=== PATIENT | male | born 1940 | race Caucasian/White ===

== ENCOUNTER 2023-07-03 10:14 | Outpatient (AMB) | payer OTHER, SELFPAY ==
--- NOTE | 2023-07-03 10:50 | HO.NEPHOV ---
HPI HPI Comments History of Present Illness Details I had the privilege of seeing Kevin was accompanied by his , in follow-up of his chronic kidney disease, hypertension and hypervolemia. In the past when he took metolazone his edema had improved. He is currently taking only furosemide 20 mg daily. He sleeps on a chair. He is not very strict with low-sodium diet. He denies shortness of breath at rest. He denies chest pain, palpitation, syncope, orthopnea, proximal nocturnal dyspnea or orthostatic symptoms. His renal functions had been stable. He does not take any nonsteroidal anti-inflammatories. [facility] Surgical History (Updated 07/03/23 @ 10:57 by Anisha Reyes MA) History of bladder surgery History of back surgery History of cataract surgery Family History (Updated 07/03/23 @ 10:59 by Anisha Reyes MA) Brother Cancer History of kidney transplant Brother Diabetes Social History (Updated 07/03/23 @ 10:59 by Anisha Reyes MA) Alcohol intake: never Patient Tobacco Use Status: Former Tobacco user Vital Signs 07/03/23 10:51 Height 6 ft Weight 264 lb 2 oz BMI 35.8 BP 138/80 Blood Pressure Location Lt brachial Position Sitting Pulse 67 Pulse Source Pulse Oximeter Pulse Oximetry (%) 97 Oxygen Delivery Method Room Air Physical Exam Vital Signs: Last Vital Signs Pulse 67 07/03/23 10:51 BP 138/80 07/03/23 10:51 Pulse Ox 97 07/03/23 10:51 Oxygen Delivery Method Room Air 07/03/23 10:51 BMI result Body Mass Index 35.8 Const General: comfortable and no acute distress Orientation/consciousness: patient oriented x3 HEENT Head: Yes normocephalic Mouth: Normal oral and palatal mucosa present Eyes EOM: EOMs intact bilaterally Neck Neck: Yes supple Resp Auscultation: clear to auscultation bilaterally Cardio Jugular venous distension: no JVD Rate: regular rate GI Palpation (GI): Soft to palpation Auscultation: normal bowel sounds General: Yes no CVA tenderness Back/Spine/Pelvis Back: no CVA tenderness Skin General skin exam: no rashes or lesions noted Neuro General: patient oriented x3 and moves all extremities Extrem General: Yes edema Assessment & Plan Assessment & Plan (1) CKD (chronic kidney disease), stage III: Code(s): N18.30 - Chronic kidney disease, stage 3 unspecified Qualifiers: Chronic kidney disease stage 3 subtype: stage 3a (GFR 45-59) Qualified Code(s): N18.31 - Chronic kidney disease, stage 3a (2) Hypertension: Code(s): I10 - Essential (primary) hypertension Qualifiers: Hypertension type: primary hypertension Qualified Code(s): I10 - Essential (primary) hypertension (3) Edema: Code(s): R60.9 - Edema, unspecified Qualifiers: Edema type: localized Qualified Code(s): R60.0 - Localized edema Plan Kevin has stage III CKD 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 He is clinically hypervolemic. I increased his furosemide 40 mg daily. I also started him on metolazone 2.5 mg daily for 5 days followed by 2.5 mg once a week. He should cut back sodium in the diet. He is going to repeat blood work and urine studies. I plan to switch his verapamil given that may also be contributing to his edema. He should weigh himself every day. He is going to be seen in the office in a month for continued care. All questions answered. Follow-up appointment given. Orders: Orders Blood Urea Nitrogen Today I10 - Essential (primary) hypertension, N18.30 - Chronic kidney disease, stage 3 unspecified, R60.9 - Edema, unspecified Electrolytes Today I10 - Essential (primary) hypertension, N18.30 - Chronic kidney disease, stage 3 unspecified, R60.9 - Edema, unspecified Protein Creatinine Ratio, Ur Today I10 - Essential (primary) hypertension, N18.30 - Chronic kidney disease, stage 3 unspecified, R60.9 - Edema, unspecified Creatinine Today I10 - Essential (primary) hypertension, N18.30 - Chronic kidney disease, stage 3 unspecified, R60.9 - Edema, unspecified Calcium Today I10 - Essential (primary) hypertension, N18.30 - Chronic kidney disease, stage 3 unspecified, R60.9 - Edema, unspecified Medications: New metolazone 2.5 mg PO QWEEK 30 tabs 0RF furosemide (Lasix) 40 mg PO DAILY 90 tabs 3RF Coding Level of Care Code Est Pt Level 4 (54952) Diagnoses Stage 3a chronic kidney disease N18.31 Chronic kidney disease stage 3 subtype: stage 3a (GFR 45-59) Primary hypertension I10 Hypertension type: primary hypertension Localized edema R60.0 Edema type: localized Results Reviewed Nephrology Results: No Data to Display
[2023-07-03 10:51] VITALS: BP 138/80; PULSE 67; O2SAT 97; BMI 35.8
== END 2023-07-03 11:40 | disposition home or self-care (01) ==
PROVIDERS: PCP Hospitalist; Visit Provider Internal Medicine Nephrology
DX: N18.31 Chronic kidney disease, stage 3a (principal); I10 Essential (primary) hypertension; R60.0 Localized edema
CPT/HCPCS: 99214

== ENCOUNTER → 2023-07-03 10:14 | Outpatient (BNVA) | payer OTHER, SELFPAY | PROVIDERS: PCP Hospitalist; Visit Provider Internal Medicine Nephrology ==

== ENCOUNTER 2023-08-05 10:04 | Outpatient (AMB) | payer OTHER, SELFPAY ==
--- NOTE | 2023-08-05 10:30 | HO.NEPHOV_ITS ---
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 He is currently taking furosemide 40 mg daily and metolazone 2.5 mg once a week. He sleeps on a chair. He is not very strict with low-sodium diet. He denies shortness of breath at rest. He denies chest pain, palpitation, syncope, orthopnea, proximal nocturnal dyspnea or orthostatic symptoms. His renal functions had been stable. He does not take any nonsteroidal anti-inflammatories. He feels better [facility] Surgical History History of bladder surgery History of back surgery History of cataract surgery Family History Brother Cancer History of kidney transplant Brother Diabetes Social History Alcohol intake: never Patient Tobacco Use Status: Former Tobacco user Physical Exam Vital Signs: Last Vital Signs Pulse 68 08/05/23 10:31 BP 128/60 08/05/23 10:31 Pulse Ox 93 08/05/23 10:31 Oxygen Delivery Method Room Air 08/05/23 10:31 BMI result Body Mass Index 35.0 Const General: comfortable and no acute distress Orientation/consciousness: patient oriented x3 HEENT Head: Yes normocephalic Mouth: Normal oral and palatal mucosa present Eyes EOM: EOMs intact bilaterally Neck Neck: Yes supple Resp Auscultation: clear to auscultation bilaterally Cardio Jugular venous distension: no JVD Rate: regular rate GI Palpation (GI): Soft to palpation Auscultation: normal bowel sounds General: Yes no CVA tenderness Back/Spine/Pelvis Back: no CVA tenderness Skin General skin exam: no rashes or lesions noted Neuro General: patient oriented x3 and moves all extremities Extrem General: Yes edema Results Reviewed Nephrology Results: No Data to Display Assessment & Plan Assessment & Plan (1) CKD (chronic kidney disease), stage III: Code(s): N18.30 - Chronic kidney disease, stage 3 unspecified Category: Medical Qualifiers: Chronic kidney disease stage 3 subtype: stage 3a (GFR 45-59) Qualified Code(s): N18.31 - Chronic kidney disease, stage 3a (2) Hypertension: Code(s): I10 - Essential (primary) hypertension Category: Medical Qualifiers: Hypertension type: primary hypertension Qualified Code(s): I10 - Essential (primary) hypertension (3) Edema: Code(s): R60.9 - Edema, unspecified Category: Medical Qualifiers: Edema type: localized Qualified Code(s): R60.0 - Localized edema Plan Kevin has stage III CKD 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 His volume status has improved. He can continue furosemide 40 mg daily along with metolazone 2.5 mg once a week. He should cut back sodium in the diet. He is going to repeat blood work and urine studies. I plan to switch his verapamil given that may also be contributing to his edema. He should weigh himself every day. He is going to be seen in the office for continued care. All questions answered. Follow-up appointment given Orders: Orders Creatinine Today I10 - Essential (primary) hypertension, N18.31 - Chronic kidney disease, stage 3a, R60.0 - Localized edema Electrolytes Today I10 - Essential (primary) hypertension, N18.31 - Chronic kidney disease, stage 3a, R60.0 - Localized edema Calcium Today I10 - Essential (primary) hypertension, N18.31 - Chronic kidney disease, stage 3a, R60.0 - Localized edema Blood Urea Nitrogen Today I10 - Essential (primary) hypertension, N18.31 - Chronic kidney disease, stage 3a, R60.0 - Localized edema Medications: Refilled metolazone 2.5 mg PO QWEEK 30 tabs 5RF Coding Level of Care Code Est Pt Level 4 (08709) Diagnoses Stage 3a chronic kidney disease N18.31 Chronic kidney disease stage 3 subtype: stage 3a (GFR 45-59) Primary hypertension I10 Hypertension type: primary hypertension Localized edema R60.0 Edema type: localized
[2023-08-05 10:31] VITALS: BP 128/60; PULSE 68; O2SAT 93; BMI 35.0
== END 2023-08-05 11:04 | disposition home or self-care (01) ==
PROVIDERS: PCP Hospitalist; Visit Provider Internal Medicine Nephrology
DX: N18.31 Chronic kidney disease, stage 3a (principal); I10 Essential (primary) hypertension; R60.0 Localized edema
CPT/HCPCS: 99214

== ENCOUNTER → 2023-08-05 10:04 | Outpatient (BNVA) | payer OTHER, SELFPAY | PROVIDERS: PCP Hospitalist; Visit Provider Internal Medicine Nephrology ==

== ENCOUNTER 2023-10-14 10:29 | Outpatient (AMB) | payer OTHER, SELFPAY ==
[2023-10-14 11:15] VITALS: BP 144/74; PULSE 70; O2SAT 95; BMI 35.3
--- NOTE | 2023-10-14 11:15 | HO.NEPHOV_ITS ---
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 He is currently taking furosemide 40 mg daily and metolazone 2.5 mg once a week. He sleeps on a chair. He is not very strict with low-sodium diet. He denies shortness of breath at rest. He denies chest pain, palpitation, syncope, orthopnea, proximal nocturnal dyspnea or orthostatic symptoms. His renal functions had been stable. He does not take any nonsteroidal anti-inflammatories. [facility] Surgical History History of bladder surgery History of back surgery History of cataract surgery Family History Brother Cancer History of kidney transplant Brother Diabetes Social History Alcohol intake: never Patient Tobacco Use Status: Former Tobacco user Physical Exam Vital Signs: Last Vital Signs Pulse 70 10/14/23 11:15 BP 144/74 H 10/14/23 11:15 Pulse Ox 95 10/14/23 11:15 Oxygen Delivery Method Room Air 10/14/23 11:15 BMI result Body Mass Index 35.3 Const General: comfortable and no acute distress Orientation/consciousness: patient oriented x3 HEENT Head: Yes normocephalic Mouth: Normal oral and palatal mucosa present Eyes EOM: EOMs intact bilaterally Neck Neck: Yes supple Resp Auscultation: clear to auscultation bilaterally Cardio Jugular venous distension: no JVD Rate: regular rate GI Palpation (GI): Soft to palpation Auscultation: normal bowel sounds General: Yes no CVA tenderness Back/Spine/Pelvis Back: no CVA tenderness Skin General skin exam: no rashes or lesions noted Neuro General: patient oriented x3 and moves all extremities Results Reviewed Nephrology Results: No Data to Display Assessment & Plan Assessment & Plan (1) Edema: Code(s): R60.9 - Edema, unspecified Category: Medical Qualifiers: Edema type: localized Qualified Code(s): R60.0 - Localized edema (2) Hypertension: Code(s): I10 - Essential (primary) hypertension Category: Medical Qualifiers: Hypertension type: primary hypertension Qualified Code(s): I10 - Essential (primary) hypertension (3) CKD (chronic kidney disease), stage III: Code(s): N18.30 - Chronic kidney disease, stage 3 unspecified Category: Medical Qualifiers: Chronic kidney disease stage 3 subtype: stage 3a (GFR 45-59) Qualified Code(s): N18.31 - Chronic kidney disease, stage 3a Plan Kevin has stage III CKD 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 His volume status has improved. He can continue furosemide 40 mg daily along with metolazone 2.5 mg once a week. He should cut back sodium in the diet. He is going to repeat blood work and urine studies. I D/Waqar his verapamil given that may also be contributing to his edema & started on hydralazine 25 mg twice daily. If his edema persists inspite of changing rosalind apamil , I shall consider re starting it. He should weigh himself every day. He is going to be seen in the office for continued care. All questions answered. Follow-up appointment given Medications: New hydralazine 25 mg PO BID 90 days 180 tabs 1RF Coding Level of Care Code Est Pt Level 4 (29021) Diagnoses Localized edema R60.0 Edema type: localized Primary hypertension I10 Hypertension type: primary hypertension Stage 3a chronic kidney disease N18.31 Chronic kidney disease stage 3 subtype: stage 3a (GFR 45-59)
== END 2023-10-14 11:34 | disposition home or self-care (01) ==
PROVIDERS: PCP Hospitalist; Visit Provider Internal Medicine Nephrology
DX: R60.0 Localized edema (principal); I10 Essential (primary) hypertension; N18.31 Chronic kidney disease, stage 3a
CPT/HCPCS: 99214

== ENCOUNTER → 2023-10-14 10:29 | Outpatient (BNVA) | payer OTHER, SELFPAY | PROVIDERS: PCP Hospitalist; Visit Provider Internal Medicine Nephrology ==

== ENCOUNTER 2024-01-08 14:23 | Outpatient (AMB) | payer OTHER, SELFPAY ==
[2024-01-08 15:12] VITALS: BP 150/76; PULSE 72; O2SAT 95; BMI 33.0
--- NOTE | 2024-01-08 15:12 | HO.NEPHOV ---
Vital Signs 01/08/24 15:12 Height 6 ft Weight 243 lb 8 oz BMI 33.0 BP 150/76 H Blood Pressure Location Lt brachial Position Sitting Pulse 72 Pulse Source Pulse Oximeter Pulse Oximetry (%) 95 Oxygen Delivery Method Room Air Intake Visit Reasons: CKD- Conf w/ Audio Visual Specialist Required: No Accompanied by: Spouse Allergies aspirin Allergy (Verified 01/08/24 15:13) Unknown diphenhydramine [From Benadryl] Allergy (Verified 01/08/24 15:13) Unknown HPI Comments Details: Kevin was seen in follow-up of his chronic kidney disease, hypertension and hypervolemia. He is currently taking furosemide 40 mg daily and metolazone 2.5 mg once a week. He sleeps on a chair. He is not very strict with low-sodium diet. He denies shortness of breath at rest. He denies chest pain, palpitation, syncope, orthopnea, proximal nocturnal dyspnea or orthostatic symptoms. His renal functions had been stable. He does not take any nonsteroidal anti-inflammatories. His edema had remarkably improved. [facility] Surgical History History of bladder surgery History of back surgery History of cataract surgery Family History Brother Cancer History of kidney transplant Brother Diabetes Social History Alcohol intake: never Patient Tobacco Use Status: Former Tobacco user Review of Systems Const All systems reviewed & are unremarkable except as noted in HPI and below Physical Exam Vital Signs: Last Vital Signs Pulse 72 01/08/24 15:12 BP 150/76 H 01/08/24 15:12 Pulse Ox 95 01/08/24 15:12 Oxygen Delivery Method Room Air 01/08/24 15:12 BMI result Body Mass Index 33.0 Const General: comfortable and no acute distress Orientation/consciousness: patient oriented x3 HEENT Head: Yes normocephalic Mouth: Normal oral and palatal mucosa present Eyes EOM: EOMs intact bilaterally Neck Neck: Yes supple Resp Auscultation: clear to auscultation bilaterally Cardio Jugular venous distension: no JVD Rate: regular rate GI Palpation (GI): Soft to palpation Auscultation: normal bowel sounds General: Yes no CVA tenderness Back/Spine/Pelvis Back: no CVA tenderness Skin General skin exam: no rashes or lesions noted Neuro General: patient oriented x3 and moves all extremities Results Reviewed Nephrology Results: No Data to Display Assessment & Plan Assessment & Plan (1) CKD (chronic kidney disease), stage III: Code(s): N18.30 - Chronic kidney disease, stage 3 unspecified Category: Medical Qualifiers: Chronic kidney disease stage 3 subtype: stage 3a (GFR 45-59) Qualified Code(s): N18.31 - Chronic kidney disease, stage 3a (2) Hypertension: Code(s): I10 - Essential (primary) hypertension Category: Medical Qualifiers: Hypertension type: primary hypertension Qualified Code(s): I10 - Essential (primary) hypertension Plan Kevin has stage III CKD 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 His volume status has remarkably improved. He can continue furosemide 40 mg daily along with metolazone 2.5 mg once a week. He should cut back sodium in the diet. He is going to repeat blood work and urine studies. He should weigh himself every day. He is going to be seen in the office for continued care. All questions answered. Follow-up appointment given Orders: Orders Creatinine 2 Months I10 - Essential (primary) hypertension, N18.31 - Chronic kidney disease, stage 3a Blood Urea Nitrogen 2 Months I10 - Essential (primary) hypertension, N18.31 - Chronic kidney disease, stage 3a Electrolytes 2 Months I10 - Essential (primary) hypertension, N18.31 - Chronic kidney disease, stage 3a Coding Level of Care Code Est Pt Level 4 (90053) Diagnoses Stage 3a chronic kidney disease N18.31 Chronic kidney disease stage 3 subtype: stage 3a (GFR 45-59) Primary hypertension I10 Hypertension type: primary hypertension
== END 2024-01-08 16:09 | disposition home or self-care (01) ==
PROVIDERS: PCP Hospitalist; Visit Provider Internal Medicine Nephrology
DX: N18.31 Chronic kidney disease, stage 3a (principal); I10 Essential (primary) hypertension
CPT/HCPCS: 99214

== ENCOUNTER → 2024-01-08 14:23 | Outpatient (BNVA) | payer OTHER, SELFPAY | PROVIDERS: PCP Hospitalist; Visit Provider Internal Medicine Nephrology ==

== ENCOUNTER 2024-04-27 10:43 | Outpatient (AMB) | payer OTHER, SELFPAY ==
--- NOTE | 2024-04-27 11:01 | HO.NEPHOV ---
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 He is currently taking furosemide 40 mg daily and metolazone 2.5 mg once a week. He sleeps on a chair. He is not very strict with low-sodium diet. He denies shortness of breath at rest. He denies chest pain, palpitation, syncope, orthopnea, proximal nocturnal dyspnea or orthostatic symptoms. His renal functions had been stable. He does not take any nonsteroidal anti-inflammatories. His edema had remarkably improved. [facility] Surgical History History of bladder surgery History of back surgery History of cataract surgery Family History Brother Cancer History of kidney transplant Brother Diabetes Social History Alcohol intake: never Patient Tobacco Use Status: Former Tobacco user Review of Systems Const All systems reviewed & are unremarkable except as noted in HPI and below Physical Exam Vital Signs: Last Vital Signs BP 110/70 04/27/24 11:02 BMI result Body Mass Index 34.1 Const General: comfortable and no acute distress Orientation/consciousness: patient oriented x3 HEENT Head: Yes normocephalic Mouth: Normal oral and palatal mucosa present Eyes EOM: EOMs intact bilaterally Neck Neck: Yes supple Resp Auscultation: clear to auscultation bilaterally Cardio Jugular venous distension: no JVD Rate: regular rate GI Palpation (GI): Soft to palpation Auscultation: normal bowel sounds General: Yes no CVA tenderness Back/Spine/Pelvis Back: no CVA tenderness Skin General skin exam: no rashes or lesions noted Neuro General: patient oriented x3 and moves all extremities Results Reviewed Nephrology Results: No Data to Display Assessment & Plan Assessment & Plan (1) CKD (chronic kidney disease), stage III: Code(s): N18.30 - Chronic kidney disease, stage 3 unspecified Category: Medical Qualifiers: Chronic kidney disease stage 3 subtype: stage 3a (GFR 45-59) Qualified Code(s): N18.31 - Chronic kidney disease, stage 3a (2) Hypertension: Code(s): I10 - Essential (primary) hypertension Category: Medical Qualifiers: Hypertension type: primary hypertension Qualified Code(s): I10 - Essential (primary) hypertension (3) Edema: Code(s): R60.9 - Edema, unspecified Category: Medical Qualifiers: Edema type: localized Qualified Code(s): R60.0 - Localized edema Plan Kevin has stage III CKD 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 His volume status has remarkably improved. He can continue furosemide 40 mg daily along with metolazone 2.5 mg once a week. He should cut back sodium in the diet. He should weigh himself every day. All questions answered. Follow-up appointment given Orders: Orders Creatinine 4 Months I10 - Essential (primary) hypertension, N18.31 - Chronic kidney disease, stage 3a, R60.0 - Localized edema Blood Urea Nitrogen 4 Months I10 - Essential (primary) hypertension, N18.31 - Chronic kidney disease, stage 3a, R60.0 - Localized edema Electrolytes 4 Months I10 - Essential (primary) hypertension, N18.31 - Chronic kidney disease, stage 3a, R60.0 - Localized edema Coding Level of Care Code Est Pt Level 4 (65916) Diagnoses Stage 3a chronic kidney disease N18.31 Chronic kidney disease stage 3 subtype: stage 3a (GFR 45-59) Primary hypertension I10 Hypertension type: primary hypertension Localized edema R60.0 Edema type: localized
[2024-04-27 11:02] VITALS: BP 110/70; BMI 34.1
--- OUTSIDE RECORDS SUMMARY | 2024-04-27 11:34 | XMS_ITS | Clinical Summary ---
Author Organization [facility] Facility Address [address] [place] [id number] Care Team Providers Care Theology Professor Name Role Phone Katie Jade MD Primary Care Provider [phone] Allergies Active Allergy Reactions Criticality Noted Date Comments Aspirin 12/19/2022 Diphenhydramine 12/19/2022 Medications carvedilol (COREG) 25 MG tablet Take 25 mg by mouth in the morning and 25 mg in the evening. 10/24/2022 Active terazosin (HYTRIN) 5 MG capsule Take 3 capsules by mouth 1 (one) time each day 12/05/2022 Active simvastatin (ZOCOR) 20 MG tablet Take 20 mg by mouth 1 (one) time each day in the evening 09/26/2022 Active lisinopril 40 MG tablet Take 40 mg by mouth 1 (one) time each day 09/25/2022 Active allopurinol (ZYLOPRIM) 100 MG tablet Take 200 mg by mouth 1 (one) time each day 09/26/2022 Active verapamil ER (VERELAN) 180 MG 24 hr capsule Take 2 capsules by mouth 1 (one) time each day 11/18/2022 Active furosemide (LASIX) 20 MG tablet Take 20 mg by mouth 1 (one) time each day Active metOLazone 5 MG tablet Take 1 tablet (5 mg total) by mouth 1 (one) time each day for 5 days 5 tablet 12/19/2022 Active Active Problems Problem Noted Date Diagnosed Date Hypertension 12/19/2022 Family History Relation Status Comments Father Mother Social History Tobacco Use Types Packs/Day Years Used Date Smoking Tobacco: Former Cigarettes Tobacco Cessation:Counseling Given: Not Answered Sex and Gender Information Value Date Recorded Sex Assigned at Not on file Legal Sex Male 2:15 PM EDT Gender Identity Not on file Sexual Orientation Not on file Last Filed Vital Signs Vital Sign Reading Time Taken Comments Blood Pressure 160/80 12/19/2022 2:29 PM EDT Pulse 70 12/19/2022 2:29 PM EDT Temperature - - Respiratory Rate - - Oxygen Saturation 96% 12/19/2022 2:29 PM EDT Inhaled Oxygen Concentration - - Weight 119 kg (263 lb 6.4 oz) 12/19/2022 2:29 PM EDT Height 182.9 cm (6') 12/19/2022 2:29 PM EDT Body Mass Index 35.72 12/19/2022 2:29 PM EDT Plan of Treatment Health Maintenance Due Date Last Done Comments Pneumococcal Vaccine: 65+ Ye ars (1 of 2 - PCV) 1946 Influenza Vaccine (#1) 2023 Hepatitis B Vaccine Aged Out No longe r eligible based on patient's age to complete this topic Insurance [employer] Care Teams Theology Professor Relationship Specialty Start Date End Date Katie Jade MD [address] [place] [id number] PCP - General Internal Medicine 12/19/22
== END 2024-04-27 11:40 | disposition home or self-care (01) ==
PROVIDERS: PCP Hospitalist; Visit Provider Internal Medicine Nephrology
DX: N18.31 Chronic kidney disease, stage 3a (principal); I10 Essential (primary) hypertension; R60.0 Localized edema
CPT/HCPCS: 99214

== ENCOUNTER → 2024-04-27 10:43 | Outpatient (BNVA) | payer OTHER, SELFPAY | PROVIDERS: PCP Hospitalist; Visit Provider Internal Medicine Nephrology ==

== ENCOUNTER 2024-09-07 13:11 | Outpatient (AMB) | payer OTHER, SELFPAY ==
[2024-09-07 13:26] VITALS: BP 166/70; PULSE 75; O2SAT 93; BMI 34.3
--- NOTE | 2024-09-07 13:26 | HO.NEPHOV_ITS ---
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 He is currently taking furosemide 40 mg alternating with 20 mg every other day and metolazone 2.5 mg once a week. He sleeps on a chair. He is not very strict with low-sodium diet. He denies shortness of breath at rest. He denies chest pain, palpitation, syncope, orthopnea, proximal nocturnal dyspnea or orthostatic symptoms. His serum creatinine has gone up. He does not take any nonsteroidal anti-inflammatories. His edema had remarkably improved. [facility] Surgical History History of bladder surgery History of back surgery History of cataract surgery Family History Brother Cancer History of kidney transplant Brother Diabetes Social History Alcohol intake: never Patient Tobacco Use Status: Former Tobacco user Review of Systems Const All systems reviewed & are unremarkable except as noted in HPI and below Physical Exam Vital Signs: Last Vital Signs Pulse 75 09/07/24 13:26 BP 166/70 H 09/07/24 13:26 Pulse Ox 93 09/07/24 13:26 Oxygen Delivery Method Room Air 09/07/24 13:26 BMI result Body Mass Index 34.3 Const General: comfortable and no acute distress Orientation/consciousness: patient oriented x3 HEENT Head: Yes normocephalic Mouth: Normal oral and palatal mucosa present Eyes EOM: EOMs intact bilaterally Neck Neck: Yes supple Resp Auscultation: clear to auscultation bilaterally Cardio Jugular venous distension: no JVD Rate: regular rate GI Palpation (GI): Soft to palpation Auscultation: normal bowel sounds General: Yes no CVA tenderness Back/Spine/Pelvis Back: no CVA tenderness Skin General skin exam: no rashes or lesions noted Neuro General: patient oriented x3 and moves all extremities Results Reviewed Nephrology Results: No Data to Display Assessment & Plan Assessment & Plan (1) JULIO (acute kidney injury): Code(s): N17.9 - Acute kidney failure, unspecified Category: Medical (2) CKD (chronic kidney disease), stage III: Code(s): N18.30 - Chronic kidney disease, stage 3 unspecified Category: Medical Qualifiers: Chronic kidney disease stage 3 subtype: stage 3a (GFR 45-59) Qualified Code(s): N18.31 - Chronic kidney disease, stage 3a (3) Hypertension: Code(s): I10 - Essential (primary) hypertension Category: Medical Qualifiers: Hypertension type: primary hypertension Qualified Code(s): I10 - Essential (primary) hypertension Plan Kevin has stage III CKD 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 His serum creatinine has gone up. I reduced his lasix to 20 mg daily. His volume status has remarkably improved. He can continue metolazone 2.5 mg once a week. He should cut back sodium in the diet. He should weigh himself every day. I may cut back on his ACEI if his serum creatinine doesnt settle. All questions answered. Follow-up appointment given Orders: Orders Creatinine 7 Weeks I10 - Essential (primary) hypertension, N17.9 - Acute kidney failure, unspecified, N18.31 - Chronic kidney disease, stage 3a Blood Urea Nitrogen 7 Weeks I10 - Essential (primary) hypertension, N17.9 - Acute kidney failure, unspecified, N18.31 - Chronic kidney disease, stage 3a Electrolytes 7 Weeks I10 - Essential (primary) hypertension, N17.9 - Acute kidney failure, unspecified, N18.31 - Chronic kidney disease, stage 3a Coding Level of Care Code Est Pt Level 4 (91759) Diagnoses JULIO (acute kidney injury) N17.9 Stage 3a chronic kidney disease N18.31 Chronic kidney disease stage 3 subtype: stage 3a (GFR 45-59) Primary hypertension I10 Hypertension type: primary hypertension
--- OUTSIDE RECORDS SUMMARY | 2024-09-07 15:05 | XMS_ITS | Patient Health Record ---
Author Organization [facility] Address [address] [place] [address] Care Team Providers Care Wallpaper Scraper Name Role Phone KEVIN LIZAMA Primary Care Provider [phone] Allergies Allergen (clinical drug ingredient) Drug/Non Drug Allergy documented on EMR Reaction Allergy Type Onset Date Status aspirin Aspirin Unknown Drug Allergy Active diphenhydramine Benadryl Unknown Drug Allergy A ctive Results Component Value Reference Range Notes ELECTROLYTE PANEL Reviewed date:09/07/2024 11:09:22 AM Interpretation: Performing Lab: Notes/Report: Sodium 138 133-145 mmol/L Potassium 4.2 3.5-5.5 mmol/L Chloride 103 96-110 mmol/L CO2 32 21-32 mmol/L Anion Gap 3 3-11 BUN Reviewed date:09/07/2024 11:09:12 AM Interpretation: Performing Lab: Notes/Report: BUN 52 5-25 mg/dL CREATININE Reviewed date:09/07/2024 11:09:17 AM Interpretation: Performing Lab: Notes/Report: Creatinine 2.15 0.70-1.30 mg/dL eGFR 30 >=60 mL/min/1.73m2 Calculati on based on the Chronic Kidney Disease Epidemiology Collaboration (CKD-EPI) equation refit without adjustment for race. MICROALB/CREAT RATIO, RANDOM Reviewed date:12/03/2023 06:21:10 PM Interpretation: Performing Lab: Notes/Report: Original Ordering Provider: KEVIN LIZAMA MD [employer], a member of [address] [address] [employer] - [place] MD MICROALBUMIN, RANDOM 82.8 0.0-29.0 mg/L MICROALB/CRE RATIO RANDOM 55.2 0.0-30.0 mg/G CREATININE, RANDOM URINE 150 LIPID PROFILE Reviewed date:12/03/2023 06:21:12 PM Interpretation: Performing Lab: Notes/Report: [employer] [address] [employer] Manager - [place] MD CHOLESTEROL 124 0-200 mg/dL TRIGLYCERIDES 123 0-150 mg/dL HDL CHOLESTEROL 41 >40 mg/dL LDL CALCULATED 59 0-100 mg/dL TC-HDLC RATIO 3.0 0-4.4 mg/dL GLYCOHEMOGLOBIN PROFILE Reviewed date:12/03/2023 06:21:07 PM Interpretation: Performing Lab: Notes/Report: Original Ordering Provider: KEVIN LIZAMA MD [employer] [address] [employer] Manager - [place] MD GLYCATED HEMOGLOBIN A1C 5.9 <6.5 % ESTIMATED AVERAGE GLUCOSE [address]IVE METABOLIC PANE L Reviewed date:12/03/2023 06:18:11 PM Interpretation: Performing Lab: Notes/Report: Original Ordering Provider: KEVIN LIZAMA MD GLUCOSE 110 70-100 mg/dL Reference range applicable to fasting specimens only BUN 48 5-25 mg/dL CREAT 1.94 0.7-1.3 mg/dL GLOMERULAR FILTRATION RATE 34 >60 This eGFR result was calculated using the CKD-EPI 2020 Creatinine Equation SODIUM 140 135-145 mEq/L POTASSIUM 4.0 3.5-5.5 mmol/L CHLORIDE 103 96-110 mmol/L CO2 29 21-32 mmol/L ANION GAP 8 3-11 CALCIUM 9.2 8.5-10.5 mg/dL TOTAL PROTEIN 7.0 6.0-8.0 G/dL ALBUMIN 3.5 3.2-5.0 G/dL BILI,TOTAL 0.6 0.0-1.4 mg/dL SGOT 21 10-42 U/L SGPT 16 10-60 U/L ALK PHOS 64 42-121 U/L Reason For Referral No Information Medications Medication SIG (Take, Route, Frequency, Duration) Notes Start Date End Date Status Simvastatin 20 MG 1 tablet Orally Once a day in the morning for 90 days Active predniSONE 20 MG 1 tablet Orally three times a day for 5 days 08/13/2022 Not-Taking Allopurinol 100 MG TAKE 2 TABLETS BY MOUTH EVERY DAY for 90 days Active Verapamil HCl ER 180 MG TAKE 2 CAPSULES BY MOUTH ONCE DAILY 90 for 90 Not-Taking hydroCHLOROthiazide 12.5 MG TAKE 1 CAPSU LE BY MOUTH EVERY MORNING for 90 Not-Taking oxyCODONE HCl 5 MG 1 tablet as needed Orally 3 times a day for 7 days 08/29/2023 Not-Taking Carvedilol 25 MG TAKE 1 TABLET BY MOUTH TWICE A DAY WITH FOOD FOR 90 DAYS for 90 Not-Taking Lisinopril 40 MG TAKE 1 TABLET BY MOUTH EVERY DAY for 90 Active Terazosin HCl 5 MG TAKE 3 CAPSULES BY MOUTH EVERY DAY for 90 Active metOLazone 2.5 MG 1 tablet Orally Once a week for 5 days 05/21/2023 Active Furosemide 40 MG TAKE 1 TABLET BY MOUTH EVERY DAY Orally Once a day for 90 days Active Immunizations Vaccine Route Administration Date Status Comme nts COVID Moderna Unknown 05/24/2020 Administered COVID Moderna Unknown 06/21/2020 Administered COVID Moderna Unknown 01/20/2021 Administered COVID-19 Moderna Unknown 12/03/2021 Administered Flu High-Dose Unknown 12/03/2021 Administered Influenza, high dose seasonal Unknown 11/22/2018 Administered Influenza, high dose seasonal Unknown 12/03/2020 Administered Pneumococcal polysaccharide PPV23 Unknown 05/06/2016 Administered Shingrix Unknown 01/08/2019 Administered Tdap IM Intramuscular 11/20/2022 Administered Social History Tobacco Use: Social History Observation Description Date Details (start date - stop date) Former Smoker NA - NA Tobacco Use/Smoking Question Answer Notes Are you a former smoker Alcohol Screen (Audit-C) Question Answer Notes Did you have a drink containing alcohol in the p ast year? 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) Active confirmed Problem Chronic kidney disease stage 3 (disorder) (441097279) Chronic kidney disease, stage 3 (moderate) (N18.3) Active confirmed Problem Congenital renal artery stenosis (484039529) 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) Active confirmed Problem Impaired fasting glucose (131564393) Impaired fasting glucose (R73.01) Active confirmed Problem Proteinuria (18962721) Proteinuria, unspecified (R80.9) Active confirmed Problem Adult health examination (925557797) Encounter for general adult medical examination without abnormal findings (Z00.00) Active confirmed Problem Essential hypertension (08421502) Essential (primary) hypertension (I10) Active confirmed Problem Benign prostatic hypertrophy without outflow obstruction (940469041) Benign prostatic hyperplasia without lower urinary tract symptoms (N40.0) Active confirmed Problem Neck pain (65308218) Neck pain (M54.2) Active confirmed Vital Signs Heart Rate 67 /min 06/09/2024 Temperature 96.7 degrees Fahrenheit 06/09/2024 Oximetry 96 % 06/09/2024 Blood pressure diastolic 82 mm Hg 06/09/2024 Height 69.37 in 06/09/2024 Blood pressure systolic 140 mm Hg 06/09/2024 Weight 248.4 lbs 06/09/2024 BMI 36.29 kg/m2 06/09/2024 Encounters Encounter Location Date Provider Diagnosis [address] [address] 12/11/2023 KEVIN LIZAMA Encounter for [facility] adult medical examination without abnormal findings Z00.00 ; Essential (primary) hypertension I10 ; Mixed hyperlipidemia E78.2 ; Chronic kidney disease, stage 3 (moderate) N18.3 and Chronic gout, unspecified, without tophus (tophi) M1A.9XX0 [address] [address] 06/09/2024 KEVIN LIZAMA Essential (primary) hypertension I10 ; Mixed hyperlipidemia E78.2 ; Chronic kidney disease, stage 3 (moderate) N18.3 ; Chronic gout, unspecified, without tophus (tophi) M1A.9XX0 and Impaired fasting glucose R73.[address] [place] [address] 09/29/2023 KEVIN LIZAMA [facility] [address] [place] [address] 08/19/2024 KEVIN LIZAMA Assessments Encounter Date Diagnosis (ICD Code) Assessment Notes Treatment Notes Treatment Clinical Notes Section Notes 12/11/2023 Encounter for general adult medical examination without abnormal findings (ICD-10 - Z00.00) Mr. Mercado is an 83-year-old gentleman with hypertension, hyperlipidemia, BPH, CKD stage III and gout here for Medicare annual wellness visit. Plan is as follows: Hypertension with proteinuria. Blood pressure well controlled on current regimen. EKG is normal sinus rhythm at [address] with no acute [address] or T wave changes, no bundle branch blocks, normal intervals Hyperlipidemia. Last lipid panel within normal limits. Continue Simvastatin 20 MG at night. Gout. Stable on Allopurinol 200 MG daily. Chronic kidney disease. He does not appear to be in volume overload. Advised appropriate hydration. Avoid NSAIDs. He sees Dr. Fonseca. Continue metolazone 5 MG once a day for 5 days. Continue Furosemide 20 MG once a day. BPH. Stable on Terazosin 5 MG daily. Impaired fasting glucose. Dietary restrictions, regimental exercise and weight loss advised. check A1c. Morbid obesity. He lost 9 lbs since last visit. Advised dietary restrictions and regimental exercise. Goal is to lose 5-6 lbs a month. Eye screening. He sees his compensation supervisor regularly. Dental screening. He sees dentist regularly. Immunizations. He is up-to-date on his COVID, TDAP, influenza, shingles and pneumonia vaccinations. Blood work reviewed with patient and questions answered. General health concerns discussed with patient. Scribe services used to formulate this note under HIPAA compliance and under [place] law mandated for scribe services. Patient aware of service. Verbal consent and written consent taken from the patient. Patient understands and verbalizes understanding of the scribes services and all questions answered regarding scribes services. Patient agrees to use of scribes services. 06/09/2024 Mixed hyperlipidemia (ICD-10 - E78.2) Mr. Mercado is an 83-year-old gentleman with hypertension, hyperlipidemia, BPH, CKD stage III and gout here for Medicare annual wellness visit. Plan is as follows: Hypertension with proteinuria. Blood pressure well controlled on current regimen. Hyperlipidemia. Last lipid panel within normal limits. Continue Simvastatin 20 MG at night. Gout. Stable on Allopurinol 200 MG daily. Chronic kidney disease. He does not appear to be in volume overload. Advised appropriate hydration. Avoid NSAIDs. He sees Dr. Fonseca. Continue metolazone 5 MG once a day for 5 days. Continue Furosemide 20 MG once a day. BPH. Stable on Terazosin 5 MG daily. Impaired fasting glucose. Dietary restrictions, regimental exercise and weight loss advised. check A1c. Morbid obesity. He lost 9 lbs since last visit. Advised dietary restrictions and regimental exercise. Goal is to lose 5-6 lbs a month. Eye screening. He sees his compensation supervisor regularly. Dental screening. He sees dentist regularly. Immunizations. He is up-to-date on his COVID, TDAP, influenza, shingles and pneumonia vaccinations. Blood work reviewed with patient and questions answered. General health concerns discussed with patient. 06/09/2024 Essential (primary) hypertension (ICD-10 - I10) Mr. Mercado is an 83-year-old gentleman with hypertension, hyperlipidemia, BPH, CKD stage III and gout here for Medicare annual wellness visit. Plan is as follows: Hypertension with proteinuria. Blood pressure well controlled on current regimen. Hyperlipidemia. Last lipid panel within normal limits. Continue Simvastatin 20 MG at night. Gout. Stable on Allopurinol 200 MG daily. Chronic kidney disease. He does not appear to be in volume overload. Advised appropriate hydration. Avoid NSAIDs. He sees Dr. Fonseca. Continue metolazone 5 MG once a day for 5 days. Continue Furosemide 20 MG once a day. BPH. Stable on Terazosin 5 MG daily. Impaired fasting glucose. Dietary restrictions, regimental exercise and weight loss advised. check A1c. Morbid obesity. He lost 9 lbs since last visit. Advised dietary restrictions and regimental exercise. Goal is to lose 5-6 lbs a month. Eye screening. He sees his compensation supervisor regularly. Dental screening. He sees dentist regularly. Immunizations. He is up-to-date on his COVID, TDAP, influenza, shingles and pneumonia vaccinations. Blood work reviewed with patient and questions answered. General health concerns discussed with patient. 06/09/2024 Chronic kidney disease, stage 3 (moderate) (ICD-10 - N18.3) Mr. Mercado is an 83-year-old gentleman with hypertension, hyperlipidemia, BPH, CKD stage III and gout here for Medicare annual wellness visit. Plan is as follows: Hypertension with proteinuria. Blood pressure well controlled on current regimen. Hyperlipidemia. Last lipid panel within normal limits. Continue Simvastatin 20 MG at night. Gout. Stable on Allopurinol 200 MG daily. Chronic kidney disease. He does not appear to be in volume overload. Advised appropriate hydration. Avoid NSAIDs. He sees Dr. Fonseca. Continue metolazone 5 MG once a day for 5 days. Continue Furosemide 20 MG once a day. BPH. Stable on Terazosin 5 MG daily. Impaired fasting glucose. Dietary restrictions, regimental exercise and weight loss advised. check A1c. Morbid obesity. He lost 9 lbs since last visit. Advised dietary restrictions and regimental exercise. Goal is to lose 5-6 lbs a month. Eye screening. He sees his compensation supervisor regularly. Dental screening. He sees dentist regularly. Immunizations. He is up-to-date on his COVID, TDAP, influenza, shingles and pneumonia vaccinations. Blood work reviewed with patient and questions answered. General health concerns discussed with patient. 12/11/2023 Essential (primary) hypertension (ICD-10 - I10) Mr. Mercado is an 83-year-old gentleman with hypertension, hyperlipidemia, BPH, CKD stage III and gout here for Medicare annual wellness visit. Plan is as follows: Hypertension with proteinuria. Blood pressure well controlled on current regimen. EKG is normal sinus rhythm at 68 bpm with no acute ST or T wave changes, no bundle branch blocks, normal intervals Hyperlipidemia. Last lipid panel within normal limits. Continue Simvastatin 20 MG at night. Gout. Stable on Allopurinol 200 MG daily. Chronic kidney disease. He does not appear to be in volume overload. Advised appropriate hydration. Avoid NSAIDs. He sees Dr. Fonseca. Continue metolazone 5 MG once a day for 5 days. Continue Furosemide 20 MG once a day. BPH. Stable on Terazosin 5 MG daily. Impaired fasting glucose. Dietary restrictions, regimental exercise and weight loss advised. check A1c. Morbid obesity. He lost 9 lbs since last visit. Advised dietary restrictions and regimental exercise. Goal is to lose 5-6 lbs a month. Eye screening. He sees his compensation supervisor regularly. Dental screening. He sees dentist regularly. Immunizations. He is up-to-date on his COVID, TDAP, influenza, shingles and pneumonia vaccinations. Blood work reviewed with patient and questions answered. General health concerns discussed with patient. Scribe services used to formulate this note under HIPAA compliance and under [place] law mandated for scribe services. Patient aware of service. Verbal consent and written consent taken from the patient. Patient understands and verbalizes understanding of the scribes services and all questions answered regarding scribes services. Patient agrees to use of scribes services. 12/11/2023 Mixed hyperlipidemia (ICD-10 - E78.2) Mr. Mercado is an 83-year-old gentleman with hypertension, hyperlipidemia, BPH, CKD stage III and gout here for Medicare annual wellness visit. Plan is as follows: Hypertension with proteinuria. Blood pressure well controlled on current regimen. EKG is normal sinus rhythm at 68 bpm with no acute ST or T wave changes, no bundle branch blocks, normal intervals Hyperlipidemia. Last lipid panel within normal limits. Continue Simvastatin 20 MG at night. Gout. Stable on Allopurinol 200 MG daily. Chronic kidney disease. He does not appear to be in volume overload. Advised appropriate hydration. Avoid NSAIDs. He sees Dr. Fonseca. Continue metolazone 5 MG once a day for 5 days. Continue Furosemide 20 MG once a day. BPH. Stable on Terazosin 5 MG daily. Impaired fasting glucose. Dietary restrictions, regimental exercise and weight loss advised. check A1c. Morbid obesity. He lost 9 lbs since last visit. Advised dietary restrictions and regimental exercise. Goal is to lose 5-6 lbs a month. Eye screening. He sees his compensation supervisor regularly. Dental screening. He sees dentist regularly. Immunizations. He is up-to-date on his COVID, TDAP, influenza, shingles and pneumonia vaccinations. Blood work reviewed with patient and questions answered. General health concerns discussed with patient. Scribe services used to formulate this note under HIPAA compliance and under [place] law mandated for scribe services. Patient aware of service. Verbal consent and written consent taken from the patient. Patient understands and verbalizes understanding of the scribes services and all questions answered regarding scribes services. Patient agrees to use of scribes services. 06/09/2024 Chronic gout, unspecified, without tophus (tophi) (ICD-10 - M1A.9XX0) Mr. Mercado is an 83-year-old gentleman with hypertension, hyperlipidemia, BPH, CKD stage III and gout here for Medicare annual wellness visit. Plan is as follows: Hypertension with proteinuria. Blood pressure well controlled on current regimen. Hyperlipidemia. Last lipid panel within normal limits. Continue Simvastatin 20 MG at night. Gout. Stable on Allopurinol 200 MG daily. Chronic kidney disease. He does not appear to be in volume overload. Advised appropriate hydration. Avoid NSAIDs. He sees Dr. Fonseca. Continue metolazone 5 MG once a day for 5 days. Continue Furosemide 20 MG once a day. BPH. Stable on Terazosin 5 MG daily. Impaired fasting glucose. Dietary restrictions, regimental exercise and weight loss advised. check A1c. Morbid obesity. He lost 9 lbs since last visit. Advised dietary restrictions and regimental exercise. Goal is to lose 5-6 lbs a month. Eye screening. He sees his compensation supervisor regularly. Dental screening. He sees dentist regularly. Immunizations. He is up-to-date on his COVID, TDAP, influenza, shingles and pneumonia vaccinations. Blood work reviewed with patient and questions answered. General health concerns discussed with patient. 12/11/2023 Chronic kidney disease, stage 3 (moderate) (ICD-10 - N18.3) Mr. Mercado is an 83-year-old gentleman with hypertension, hyperlipidemia, BPH, CKD stage III and gout here for Medicare annual wellness visit. Plan is as follows: Hypertension with proteinuria. Blood pressure well controlled on current regimen. EKG is normal sinus rhythm at 68 [address]pm with no acute ST or T wave changes, no bundle branch blocks, normal intervals Hyperlipidemia. Last lipid panel within normal limits. Continue Simvastatin 20 MG at night. Gout. Stable on Allopurinol 200 MG daily. Chronic kidney disease. He does not appear to be in volume overload. Advised appropriate hydration. Avoid NSAIDs. He sees Dr. Fonseca. Continue metolazone 5 MG once a day for 5 days. Continue Furosemide 20 MG once a day. BPH. Stable on Terazosin 5 MG daily. Impaired fasting glucose. Dietary restrictions, regimental exercise and weight loss advised. check A1c. Morbid obesity. He lost 9 lbs since last visit. Advised dietary restrictions and regimental exercise. Goal is to lose 5-6 lbs a month. Eye screening. He sees his compensation supervisor regularly. Dental screening. He sees dentist regularly. Immunizations. He is up-to-date on his COVID, TDAP, influenza, shingles and pneumonia vaccinations. Blood work reviewed with patient and questions answered. General health concerns discussed with patient. Scribe services used to formulate this note under HIPAA compliance and under [place] law mandated for scribe services. Patient aware of service. Verbal consent and written consent taken from the patient. Patient understands and verbalizes understanding of the scribes services and all questions answered regarding scribes services. Patient agrees to use of scribes services. 12/11/2023 Chronic gout, unspecified, without tophus (tophi) (ICD-10 - M1A.9XX0) Mr. Mercado is an 83-year-old gentleman with hypertension, hyperlipidemia, BPH, CKD stage III and gout here for Medicare annual wellness visit. Plan is as follows: Hypertension with proteinuria. Blood pressure well controlled on current regimen. EKG is normal sinus rhythm at 68 [address]pm with no acute ST or T wave changes, no bundle branch blocks, normal intervals Hyperlipidemia. Last lipid panel within normal limits. Continue Simvastatin 20 MG at night. Gout. Stable on Allopurinol 200 MG daily. Chronic kidney disease. He does not appear to be in volume overload. Advised appropriate hydration. Avoid NSAIDs. He sees Dr. Fonseca. Continue metolazone 5 MG once a day for 5 days. Continue Furosemide 20 MG once a day. BPH. Stable on Terazosin 5 MG daily. Impaired fasting glucose. Dietary restrictions, regimental exercise and weight loss advised. check A1c. Morbid obesity. He lost 9 lbs since last visit. Advised dietary restrictions and regimental exercise. Goal is to lose 5-6 lbs a month. Eye screening. He sees his compensation supervisor regularly. Dental screening. He sees dentist regularly. Immunizations. He is up-to-date on his COVID, TDAP, influenza, shingles and pneumonia vaccinations. Blood work reviewed with patient and questions answered. General health concerns discussed with patient. Scribe services used to formulate this note under HIPAA compliance and under [place] law mandated for scribe services. Patient aware of service. Verbal consent and written consent taken from the patient. Patient understands and verbalizes understanding of the scribes services and all questions answered regarding scribes services. Patient agrees to use of scribes services. 06/09/2024 Impaired fasting glucose (ICD-10 - R73.01) Mr. Mercado is an 83-year-old gentleman with hypertension, hyperlipidemia, BPH, CKD stage III and gout here for Medicare annual wellness visit. Plan is as follows: Hypertension with proteinuria. Blood pressure well controlled on current regimen. Hyperlipidemia. Last lipid panel within normal limits. Continue Simvastatin 20 MG at night. Gout. Stable on Allopurinol 200 MG daily. Chronic kidney disease. He does not appear to be in volume overload. Advised appropriate hydration. Avoid NSAIDs. He sees Dr. Fonseca. Continue metolazone 5 MG once a day for 5 days. Continue Furosemide 20 MG once a day. BPH. Stable on Terazosin 5 MG daily. Impaired fasting glucose. Dietary restrictions, regimental exercise and weight loss advised. check A1c. Morbid obesity. He lost 9 lbs since last visit. Advised dietary restrictions and regimental exercise. Goal is to lose 5-6 lbs a month. Eye screening. He sees his compensation supervisor regularly. Dental screening. He sees dentist regularly. Immunizations. He is up-to-date on his COVID, TDAP, influenza, shingles and pneumonia vaccinations. Blood work reviewed with patient and questions answered. General health concerns discussed with patient. Plan Of Treatment Pending Test Test Name Order Date Electrocardiogram (EKG) 12/17/2017 Hemoglobin A1c 06/17/2018 BASIC METABOLIC PANEL 05/21/2023 COMPREHENSIVE METABOLIC PANEL 12/30/2018 HEMOGLOBIN A1C 10/26/2021 HEMOGLOBIN A1C 10/24/2021 LIPID PANEL 12/30/2018 MICROALBUMIN, URINE 12/30/2018 URIC ACID 06/17/2018 Hemoglobin A1C 06/11/2018 Hemoglobin [id number] 05/21/2023 Future Test Test Name Order Date Uric [id number] 06/09/2024 Hemoglobin [id number] 06/09/2024 Albumin/Creatinine Ratio,[id number] Lipid [id number] 06/09/2024 Comp. Metabolic Panel [id number] 2024 Next Appt Details Provider Name:KEVIN LIZAMA , 12/14/2024 03:00:00 PM, [address], [place], [address], Insurance Providers Payer Name Payer Address Payer Phone Subscriber Number Group Number Insured Name Patient Relationship to Insured Coverage Start Date Coverage End Date [employer] Preferred [address] [place] [address] [id number] CALLI MERCADO Self - patient is the insured 2 Medical (General) History Medical History History ICD Code hypertension, benign hyperlipidemia BPH Gout Surgical History Surgery Date(Month/Year) cataract removal 2015 Disc Fragments, back 2000 bladder cancer 1992
== END 2024-09-07 13:56 | disposition home or self-care (01) ==
LOC: HO.HKAS 13:14
PROVIDERS: PCP Hospitalist; Visit Provider Internal Medicine Nephrology
DX: N17.9 Acute kidney failure, unspecified (principal); N18.31 Chronic kidney disease, stage 3a; I10 Essential (primary) hypertension
CPT/HCPCS: 99214

== ENCOUNTER 2024-11-25 10:59 | Outpatient (AMB) | payer OTHER, SELFPAY ==
--- NOTE | 2024-11-25 11:07 | HO.NEPHOV ---
Vital Signs 11/25/24 11:12 Height 6 ft Weight 255 lb 8 oz BMI 34.6 BP 130/70 Blood Pressure Location Lt brachial Position Sitting Pulse 67 Pulse Source Pulse Oximeter Pulse Oximetry (%) 95 Oxygen Delivery Method Room Air Intake Visit Reasons: f/u appt ok per -[employer] Executive Required: No Accompanied by: Spouse Allergies aspirin Allergy (Verified 11/25/24 11:11) Unknown diphenhydramine (From Benadryl) Allergy (Verified 11/25/24 11:11) Unknown HPI Comments Details: Kevin was seen in follow-up of his chronic kidney disease, hypertension and H/O hypervolemia. He is currently taking furosemide 40 mg alternating with 20 mg every other day and metolazone 2.5 mg once a week. He sleeps on a chair. He is not very strict with low-sodium diet. He denies shortness of breath at rest. He denies chest pain, palpitation, syncope, orthopnea, proximal nocturnal dyspnea or orthostatic symptoms. He does not take any nonsteroidal anti-inflammatories. His edema had remarkably improved. FORMERLY [facility] Surgical History History of bladder surgery History of back surgery History of cataract surgery Family History Brother Cancer History of kidney transplant Brother Diabetes Social History Alcohol intake: never Patient Tobacco Use Status: Former Tobacco user Review of Systems Const All systems reviewed & are unremarkable except as noted in HPI and below Physical Exam Const General: comfortable and no acute distress Orientation/consciousness: patient oriented x3 HEENT Head: Yes normocephalic Mouth: Normal oral and palatal mucosa present Eyes EOM: EOMs intact bilaterally Neck Neck: Yes supple Resp Auscultation: clear to auscultation bilaterally Cardio Jugular venous distension: no JVD Rate: regular rate GI Palpation (GI): Soft to palpation Auscultation: normal bowel sounds General: Yes no CVA tenderness Back/Spine/Pelvis Back: no CVA tenderness Skin General skin exam: no rashes or lesions noted Neuro General: patient oriented x3 and moves all extremities Assessment & Plan Assessment & Plan (1) Hypertension: Code(s): I10 - Essential (primary) hypertension Category: Medical Qualifiers: Hypertension type: primary hypertension Qualified Code(s): I10 - Essential (primary) hypertension (2) CKD (chronic kidney disease), stage III: Code(s): N18.30 - Chronic kidney disease, stage 3 unspecified Category: Medical Qualifiers: Chronic kidney disease stage 3 subtype: stage 3a (GFR 45-59) Qualified Code(s): N18.31 - Chronic kidney disease, stage 3a (3) Edema: Code(s): R60.9 - Edema, unspecified Category: Medical Qualifiers: Edema type: localized Qualified Code(s): R60.0 - Localized edema Plan Kevin has stage III CKD 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 His serum creatinine has improved to baseline after I reduced his lasix to 20 mg daily. He was asked to increase lasix 40 mg daily if needed. His volume status has remarkably improved. He can continue metolazone 2.5 mg once a week which can go up to twice a week if needed. He should cut back sodium in the diet. He should weigh himself every day. I may cut back on his ACEI if his serum creatinine goes up. All questions answered. Follow-up appointment given Orders: Orders Blood Urea Nitrogen 6 Months I10 - Essential (primary) hypertension, N18.31 - Chronic kidney disease, stage 3a, R60.0 - Localized edema Electrolytes 6 Months I10 - Essential (primary) hypertension, N18.31 - Chronic kidney disease, stage 3a, R60.0 - Localized edema Creatinine 3 Months I10 - Essential (primary) hypertension, N18.31 - Chronic kidney disease, stage 3a, R60.0 - Localized edema Creatinine 6 Months I10 - Essential (primary) hypertension, N18.31 - Chronic kidney disease, stage 3a, R60.0 - Localized edema Calcium 6 Months I10 - Essential (primary) hypertension, N18.31 - Chronic kidney disease, stage 3a, R60.0 - Localized edema Electrolytes 3 Months I10 - Essential (primary) hypertension, N18.31 - Chronic kidney disease, stage 3a, R60.0 - Localized edema Blood Urea Nitrogen 3 Months I10 - Essential (primary) hypertension, N18.31 - Chronic kidney disease, stage 3a, R60.0 - Localized edema Coding Level of Care Code Est Pt Level 4 (69817) Diagnoses Primary hypertension I10 Hypertension type: primary hypertension Stage 3a chronic kidney disease N18.31 Chronic kidney disease stage 3 subtype: stage 3a (GFR 45-59) Localized edema R60.0 Edema type: localized
[2024-11-25 11:12] VITALS: BP 130/70; PULSE 67; O2SAT 95; BMI 34.6
--- OUTSIDE RECORDS SUMMARY | 2024-11-25 12:36 | XMS_ITS | Clinical Summary ---
Author Organization [facility] Facility Address [address] [place] [address] Care Team Providers Care Credit Operations Processor Name Role Phone Katie Jade MD Primary Care Provider [phone] Allergies Active Allergy Reactions Criticality Noted Date [...] Due Date Last Done Comments Pneumococcal Vaccine: 50+ Ye ars (1 of 2 - PCV) 1960 Influenza Vaccine (#1) 2024 Hepatitis B Vaccine Aged Out No longe r eligible based on patient's age to complete this topic Insurance [employer] Care Teams Credit Operations Processor Relationship Specialty Start Date End Date Katie Jade MD [address] [place] [address] PCP - General Internal Medicine 12/19/22
--- OUTSIDE RECORDS SUMMARY | 2024-11-25 12:36 | XMS_ITS | Patient Health Record ---
Author Organization [facility] Address [address] [place] [address] Care Team Providers Care Chamber Magistrate Name Role Phone KEVIN LIZAMA Primary Care Provider [phone] Allergies Allergen (clinical drug ingredient) Drug/Non Drug Allergy documented on EMR Reaction Allergy Type Onset Date Status aspirin Aspirin Unknown Drug Allergy Active diphenhydramine Benadryl Unknown Drug Allergy A ctive Results Component Value Reference Range Notes COMPREHENSIVE METABOLIC PANE L Reviewed date:12/03/2023 06:18:11 [...] 10-60 U/L ALK PHOS 64 42-121 U/L LIPID PROFILE Reviewed date:12/03/2023 06:21:12 PM Interpretation: Performing Lab: Notes/Report: [facility], a member of [address] [address] Finishing Manager - Sandy Cross MD CHOLESTEROL 124 0-200 mg/dL TRIGLYCERIDES 123 0-150 mg/dL HDL CHOLESTEROL 41 >40 mg/dL LDL CALCULATED 59 0-100 mg/dL TC-HDLC RATIO 3.0 0-4.4 mg/dL MICROALB/CREAT RATIO, RANDOM Reviewed date:12/03/2023 06:21:10 PM Interpretation: Performing Lab: Notes/Report: Original Ordering Provider: KEVIN LIZAMA MD [facility], a member of [address] [address] Finishing Manager - Sandy Cross MD MICROALBUMIN, RANDOM 82.8 0.0-29.0 mg/L MICROALB/CRE RATIO RANDOM 55.2 0.0-30.0 mg/G CREATININE, RANDOM URINE 150 ELECTROLYTE PANEL Reviewed date:11/17/2024 07:42:38 AM Interpretation: Performing Lab: Notes/Report: Sodium 137 133-145 mmol/L Potassium 4.0 3.5-5.5 mmol/L Chloride 102 96-110 mmol/L CO2 30 21-32 mmol/L Anion Gap 5 3-11 BUN Reviewed date:11/17/2024 07:42:41 AM Interpretation: Performing Lab: Notes/Report: BUN 26 5-25 mg/dL CREATININE Reviewed date:11/17/2024 07:42:34 AM Interpretation: Performing Lab: Notes/Report: Creatinine 1.76 0.70-1.30 mg/dL eGFR 38 >=60 mL/min/1.73m2 Calculati on based on the Chronic Kidney Disease Epidemiology Collaboration (CKD-EPI) equation refit without adjustment for race. ELECTROLYTE PANEL Reviewed date:09/07/2024 11:09:22 AM Interpretation: [...] (CKD-EPI) equation refit without adjustment for race. GLYCOHEMOGLOBIN PROFILE Reviewed date:12/03/2023 06:21:07 PM Interpretation: Performing Lab: Notes/Report: Original Ordering Provider: KEVIN LIZAMA MD [facility] [address] Finishing Manager - Sandy Cross MD GLYCATED HEMOGLOBIN A1C 5.9 <6.5 % ESTIMATED AVERAGE GLUCOSE 123 Reason For Referral No Information Medications Medication SIG (Take, Route, Frequency, Duration) Notes Start Date End Date Status Simvastatin 20 MG 1 tablet Orally Once a day in the morning; Duration: 90 days Active predniSONE 20 MG 1 tablet Orally three times a day; Duration: 5 days 08/13/2022 Not-Taking Allopurinol 100 MG TAKE 2 TABLETS BY MOUTH EVERY DAY; Duration: 90 days Active Verapamil HCl ER 180 MG TAKE 2 CAPSULES BY MOUTH ONCE DAILY 90; Duration: 90 Not-Taking Carvedilol 25 MG TAKE 1 TABLET BY MOUTH TWICE A DAY WITH FOOD FOR 90 DAYS; Duration: 90 Active hydroCHLOROthiazide 12.5 MG TAKE 1 CAPSU LE BY MOUTH EVERY MORNING; Duration: 90 Not-Taking oxyCODONE HCl 5 MG 1 tablet as needed Orally 3 times a day; Duration: 7 days 08/29/2023 Not-Taking Lisinopril 40 MG TAKE 1 TABLET BY MOUTH EVERY DAY; Duration: 90 Active Terazosin HCl 5 MG TAKE 3 CAPSULES BY MOUTH EVERY DAY; Duration: 90 Active metOLazone 2.5 MG 1 tablet Orally Once a week; Duration: 5 days 05/21/2023 Active Furosemide 40 MG TAKE 1 TABLET BY MOUTH EVERY DAY Orally Once a day; Duration: 90 days Active Immunizations Vaccine Route Administration [...] Status Risk Notes Problem Morbid obesity (disorder) (970621332) Morbid (severe) obesity due to excess calories (E66.01) Active confirmed Problem Mixed hyperlipidemia (440836984) Mixed hyperlipidemia (E78.2) Active confirmed Problem Chronic gouty arthritis (32731792) Chronic gout, unspecified, 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) Active confirmed Problem Chronic kidney disease stage 3 (disorder) (716114233) Chronic kidney disease, stage 3 (moderate) (N18.3) Active confirmed Problem Congenital renal artery stenosis (247176330) 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) Active confirmed Problem Impaired fasting glucose (944651722) Impaired fasting glucose (R73.01) Active confirmed Problem Proteinuria (22936093) Proteinuria, unspecified (R80.9) Active confirmed Problem Adult health examination (969358968) Encounter for general adult medical examination without abnormal findings (Z00.00) Active confirmed Problem Essential hypertension (97581397) Essential (primary) hypertension (I10) Active confirmed Problem Benign prostatic hypertrophy without outflow obstruction (432510556) Benign prostatic hyperplasia without lower urinary tract symptoms (N40.0) Active confirmed Problem Neck pain (54489309) Neck pain (M54.2) Active confirmed Vital Signs Heart Rate 67 /min 06/09/2024 Temperature 96.7 degrees Fahrenheit 06/09/2024 Blood pressure diastolic 82 mm Hg 06/09/2024 Oximetry 96 % 06/09/2024 Height 69.37 in 06/09/2024 Blood pressure systolic 140 mm Hg 06/09/2024 Weight 248.4 lbs 06/09/2024 BMI 36.29 kg/m2 06/09/2024 Encounters Encounter Location Date Provider Diagnosis [address] [place] [address] 12/11/2023 KEVIN MATA Encounter for genera l adult medical examination without abnormal findings Z00.00 ; Essential (primary) hypertension I10 ; Mixed hyperlipidemia E78.2 ; Chronic kidney disease, stage 3 (moderate) N18.3 and Chronic gout, unspecified, without tophus (tophi) M1A.9XX0 [address] [place] [address] 06/09/2024 [facility] Essential (primary) hypertension I10 ; Mixed hyperlipidemia E78.2 ; Chronic kidney disease, stage 3 (moderate) N18.3 ; Chronic gout, unspecified, without tophus (tophi) M1A.9XX0 and Impaired fasting glucose R73.[address] [place] [address] 08/19/2024 KEVIN MATA Assessments Encounter Date Diagnosis (ICD Code) Assessment [...] a month. Eye screening. He sees his ore crushing dust collector regularly. Dental screening. He sees dentist regularly. Immunizations. He is up-to-date on his COVID, TDAP, influenza, shingles and pneumonia vaccinations. Blood work reviewed with patient and questions answered. General health concerns discussed with patient. Scribe services used to formulate this note under HIPAA compliance and under [place] law mandated for scribe services. Patient aware [...] a month. Eye screening. He sees his ore crushing dust collector regularly. Dental screening. He sees dentist regularly. [...] a month. Eye screening. He sees his ore crushing dust collector regularly. Dental screening. He sees dentist regularly. [...] a month. Eye screening. He sees his ore crushing dust collector regularly. Dental screening. He sees dentist regularly. [...] a month. Eye screening. He sees his ore crushing dust collector regularly. Dental screening. He sees dentist regularly. Immunizations. He is up-to-date on his COVID, TDAP, influenza, shingles and pneumonia vaccinations. Blood work reviewed with patient and questions answered. General health concerns discussed with patient. Scribe services used to formulate this note under HIPAA compliance and under [place] law mandated for scribe services. Patient aware [...] a month. Eye screening. He sees his ore crushing dust collector regularly. Dental screening. He sees dentist regularly. Immunizations. He is up-to-date on his COVID, TDAP, influenza, shingles and pneumonia vaccinations. Blood work reviewed with patient and questions answered. General health concerns discussed with patient. Scribe services used to formulate this note under HIPAA compliance and under [place] law mandated for scribe services. Patient aware [...] a month. Eye screening. He sees his ore crushing dust collector regularly. Dental screening. He sees dentist regularly. [...] a month. Eye screening. He sees his ore crushing dust collector regularly. Dental screening. He sees dentist regularly. Immunizations. He is up-to-date on his COVID, TDAP, influenza, shingles and pneumonia vaccinations. Blood work reviewed with patient and questions answered. General health concerns discussed with patient. Scribe services used to formulate this note under HIPAA compliance and under [place] law mandated for scribe services. Patient aware [...] a month. Eye screening. He sees his ore crushing dust collector regularly. Dental screening. He sees dentist regularly. Immunizations. He is up-to-date on his COVID, TDAP, influenza, shingles and pneumonia vaccinations. Blood work reviewed with patient and questions answered. General health concerns discussed with patient. Scribe services used to formulate this note under HIPAA compliance and under [place] law mandated for scribe services. Patient aware [...] a month. Eye screening. He sees his ore crushing dust collector regularly. Dental screening. He sees dentist regularly. Immunizations. He is up-to-date on his COVID, TDAP, influenza, shingles and pneumonia vaccinations. Blood work reviewed with patient and questions answered. General health concerns discussed with patient. Plan Of Treatment Pending Test Test Name Order Date Electrocardiogram (EKG) 12/17/2017 Hemoglobin A1c 06/17/2018 BASIC METABOLIC PANEL 05/21/2023 COMPREHENSIVE METABOLIC PANEL 12/30/2018 HEMOGLOBIN A1C 10/24/2021 HEMOGLOBIN A1C 10/26/2021 LIPID PANEL 12/30/2018 MICROALBUMIN, URINE 12/30/2018 URIC ACID 06/17/2018 Hemoglobin A1C 06/11/2018 Hemoglobin [id number] 05/21/2023 Future Test Test Name Order Date Uric Acid-[id number] 06/09/2024 Hemoglobin [id number] 06/09/2024 Albumin/Creatinine Ratio,Urine-[id number] Lipid Panel-[id number] 06/09/2024 Comp. Metabolic Panel [id number] 2024 Next Appt Details Provider Name:KEVIN LIZAMA , 12/14/2024 03:00:00 PM, [address] [place] [address], [id number], Insurance Providers Payer Name Payer Address Payer Phone Subscriber Number Group Number Insured Name Patient Relationship to Insured Coverage Start Date Coverage End Date [employer] Preferred [address] [place] [address] [phone] [id number] Neil Mercado Self - patient is the insured 2 Medical (General) History Medical History History ICD Code hypertension, benign hyperlipidemia BPH Gout Surgical History Surgery Date(Month/Year) cataract removal 2016 Disc Fragments, back 2000 bladder cancer 1992
== END 2024-11-25 11:42 | disposition home or self-care (01) ==
LOC: HO.HKAS 10:59
PROVIDERS: PCP Hospitalist; Visit Provider Internal Medicine Nephrology
DX: I10 Essential (primary) hypertension (principal); N18.31 Chronic kidney disease, stage 3a; R60.0 Localized edema
CPT/HCPCS: 99214

== ENCOUNTER 2025-03-23 11:40 | Outpatient (AMB) | payer OTHER, SELFPAY ==
[2025-03-23 11:54] VITALS: BP 130/70; PULSE 70; O2SAT 96; BMI 34.2
--- NOTE | 2025-03-23 11:54 | HO.NEPHOV_ITS ---
Vital Signs 03/23/25 11:54 Height 6 ft Weight 252 lb BMI 34.2 BP 130/70 Blood Pressure Location Lt brachial Position Sitting Pulse 70 Pulse Source Pulse Oximeter Pulse Oximetry (%) 96 Oxygen Delivery Method Room Air Intake Visit Reasons: Leg Edema Senior Account Manager Required: No Accompanied by: Spouse Allergies aspirin Allergy (Verified 03/23/25 11:56) Unknown diphenhydramine (From Benadryl) Allergy (Verified 03/23/25 11:56) Unknown HPI Comments Details: Kevin was seen in follow-up of his chronic kidney disease, hypertension and hypervolemia. He has been having weeping edema in both lower extremities . He also has been having erythema with purulent discharge on the RLE at a spot. He is currently taking furosemide 20 mg every day and metolazone 2.5 mg once a week. He sleeps on a chair. He is not very strict with low-sodium diet. He denies shortness of breath at rest. He denies chest pain, palpitation, syncope, orthopnea, proximal nocturnal dyspnea or orthostatic symptoms. He does not take any nonsteroidal anti-inflammatories. [facility] Surgical History History of bladder surgery History of back surgery History of cataract surgery Family History Brother Cancer History of kidney transplant Brother Diabetes Social History Alcohol intake: never Patient Tobacco Use Status: Former Tobacco user Review of Systems Const All systems reviewed & are unremarkable except as noted in HPI and below Physical Exam Vital Signs: Last Vital Signs Pulse 70 03/23/25 11:54 BP 170/72 H 03/23/25 11:54 Pulse Ox 96 03/23/25 11:54 Oxygen Delivery Method Room Air 03/23/25 11:54 BMI result Body Mass Index 34.2 Const General: comfortable and no acute distress Orientation/consciousness: patient oriented x3 HEENT Head: Yes normocephalic Mouth: Normal oral and palatal mucosa present Eyes EOM: EOMs intact bilaterally Neck Neck: Yes supple Resp Auscultation: clear to auscultation bilaterally Cardio Jugular venous distension: no JVD Rate: regular rate GI Palpation (GI): Soft to palpation Auscultation: normal bowel sounds General: Yes no CVA tenderness Back/Spine/Pelvis Back: no CVA tenderness Skin General skin exam: no rashes or lesions noted Neuro General: patient oriented x3 and moves all extremities Extrem General: Yes no pedal edema Assessment & Plan Assessment & Plan (1) CKD (chronic kidney disease), stage III: Code(s): N18.30 - Chronic kidney disease, stage 3 unspecified Category: Medical Qualifiers: Chronic kidney disease stage 3 subtype: stage 3a (GFR 45-59) Qualified Code(s): N18.31 - Chronic kidney disease, stage 3a (2) Hypertension: Code(s): I10 - Essential (primary) hypertension Category: Medical Qualifiers: Hypertension type: primary hypertension Qualified Code(s): I10 - Essential (primary) hypertension (3) Cellulitis: Code(s): L03.90 - Cellulitis, unspecified Category: Medical Qualifiers: Site of cellulitis: extremity Site of cellulitis of extremity: lower extremity Laterality: right Qualified Code(s): L03.115 - Cellulitis of right lower limb Plan Kevin has stage III CKD 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 I started him on Doxycycline 100 mg PO bid. I increased his lasix to 40 mg twice daily for a week followed by 40 mg daily. He can continue metolazone 2.5 mg once a week which can go up to twice a week if needed. I reduced his lisinopril to 20 mg daily which I shall increase to 40 mg when his diuretic dose is cut back. He should cut back sodium in the diet. He should weigh himself every day.All questions answered. Follow-up appointment given Orders: Orders Electrolytes 2 Weeks I10 - Essential (primary) hypertension, L03.90 - Cellulitis, unspecified, N18.31 - Chronic kidney disease, stage 3a Blood Urea Nitrogen 2 Weeks I10 - Essential (primary) hypertension, L03.90 - Cellulitis, unspecified, N18.31 - Chronic kidney disease, stage 3a Creatinine 2 Weeks I10 - Essential (primary) hypertension, L03.90 - Cellulitis, unspecified, N18.31 - Chronic kidney disease, stage 3a Medications: New doxycycline hyclate 100 mg PO BID 20 caps 0RF Coding Level of Care Code Est Pt Level 4 (03989) Diagnoses Stage 3a chronic kidney disease N18.31 Chronic kidney disease stage 3 subtype: stage 3a (GFR 45-59) Primary hypertension I10 Hypertension type: primary hypertension Cellulitis of right lower extremity L03.115 Site of cellulitis: extremity Site of cellulitis of extremity: lower extremity Laterality: right
--- OUTSIDE RECORDS SUMMARY | 2025-03-23 13:23 | XMS_ITS | Clinical Summary ---
Author Organization [facility] Facility Address [address] [place] [address] Care Team Providers Care Immunology Specialist Name Role Phone Katie Jade MD Primary Care Provider Allergies Active Allergy Reactions Criticality Noted Date [...] Insurance [employer] Care Teams Immunology Specialist Relationship Specialty Start Date End Date Katie Jade MD [address] [place] [address] PCP - General Internal Medicine 12/19/22
--- OUTSIDE RECORDS SUMMARY | 2025-03-23 13:23 | XMS_ITS | Patient Health Record ---
Author Organization [employer] [facility] Address [address] [place] [address] Care Team Providers Care Hadoop Engineer Name Role Phone KEVIN LIZAMA Primary Care Provider [phone] Allergies Allergen (clinical drug ingredient) Drug/Non Drug Allergy documented on EMR Reaction Allergy Type Onset Date Status aspirin Aspirin Unknown Drug Allergy Active diphenhydramine Benadryl Unknown Drug Allergy A ctive Results Component Value Reference Range Notes URIC ACID Reviewed date:12/07/2024 05:26:02 PM Interpretation: Performing Lab: Notes/Report: Uric Acid 5.3 3.7-9.2 mg/dL MICROALBUMIN CREATININE URIN E RATIO Reviewed date:12/07/2024 05:25:15 PM Interpretation: Performing Lab: Notes/Report: Creatinine, Urine 174.0 Microalb, Ur 39.3 0.0-29.0 mg/L Microalb/Creat Ratio 23 <30 mg/g creat COMPREHENSIVE METABOLIC PANE L Reviewed date:12/07/2024 05:25:58 PM Interpretation: Performing Lab: Notes/Report: Sodium 138 133-145 mmol/L Potassium 4.2 3.5-5.5 mmol/L Chloride 102 96-110 mmol/L CO2 27 21-32 mmol/L Anion Gap 9 3-11 Glucose 109 70-100 mg/dL BUN 42 5-25 mg/dL Creatinine 2.06 0.70-1.30 mg/dL eGFR 31 >=60 mL/min/1.73m2 Calculati on based on the Chronic Kidney Disease Epidemiology Collaboration (CKD-EPI) equation refit without adjustment for race. BUN/Creatinine Ratio 20.4 Calcium 8.9 8.5-10.5 mg/dL AST (SGOT) 21 10-42 unit/L ALT (SGPT) 16 10-60 unit/L Alkaline Phosphatase 65 42-121 unit/L Total Protein 7.2 6.0-8.0 g/dL Albumin 3.4 3.2-5.0 g/dL Total Bilirubin 0.5 0.0-1.4 mg/dL HEMOGLOBIN A1C Reviewed date:12/07/2024 05:25:26 PM Interpretation: Performing Lab: Notes/Report: Hemoglobin A1C 6.0 <6.5 % Mean Bld Glu Estim. 126 LIPID PANEL WITH REFLEX TO D IRECT LDL Reviewed date:12/07/2024 05:25:36 PM Interpretation: Performing Lab: Notes/Report: Cholesterol 122 0-200 mg/dL Triglycerides 128 0-150 mg/dL HDL 45 >=40 mg/dL LDL Calculated 51 0-100 mg/dL Estimated LDL Calculated using equation: Total cholesterol - HDL cholesterol - (Triglycerides/5) VLDL Cholesterol Edmar 25.6 Non HDL Chol. (LDL+VLDL) 77 <145 mg/dL Chol/HDL Ratio 2.7 0.0-4.4 ELECTROLYTE PANEL Reviewed date:09/07/2024 11:09:22 AM Interpretation: [...] without adjustment for race. ELECTROLYTE PANEL Reviewed date:11/17/2024 07:42:38 AM Interpretation: [...] without adjustment for race. ELECTROLYTE PANEL Reviewed date:02/24/2025 12:45:56 PM Interpretation: Performing Lab: Notes/Report: Sodium 139 133-145 mmol/L Potassium 4.0 3.5-5.5 mmol/L Chloride 100 96-110 mmol/L CO2 31 21-32 mmol/L Anion Gap 8 3-11 BUN Reviewed date:02/24/2025 12:45:49 PM Interpretation: Performing Lab: Notes/Report: BUN 55 5-25 mg/dL Reason For Referral No Information Medications Medication SIG (Take, Route, Frequency, Duration) Notes Start Date End Date Status metOLazone 2.5 MG 1 tablet Orally Once a week; Duration: 5 days 05/21/2023 Active Simvastatin 20 MG TAKE 1 TABLET BY MOUTH EVERY DAY IN THE MORNING; Duration: 90 Active Furosemide 40 MG TAKE 1 TABLET BY MOUTH EVERY DAY Orally Once a day; Duration: 90 days Active Lisinopril 40 MG TAKE 1 TABLET BY MOUTH EVERY DAY; Duration: 90 Active Terazosin HCl 5 MG TAKE 3 CAPSULES BY MOUTH EVERY DAY; Duration: 90 Active Carvedilol 25 MG TAKE 1 TABLET BY MOUTH TWICE A DAY WITH FOOD FOR 90 DAYS; Duration: 90 Active predniSONE 20 MG 1 tablet Orally three times a day; Duration: 5 days 08/13/2022 Not-Taking oxyCODONE HCl 5 MG 1 tablet as needed Orally 3 times a day; Duration: 7 days 08/29/2023 Not-Taking Allopurinol 100 MG TAKE 2 TABLETS BY MOUTH EVERY DAY; Duration: 90 Active Verapamil HCl ER 180 MG TAKE 2 CAPSULES BY MOUTH ONCE DAILY 90; Duration: 90 Not-Taking hydroCHLOROthiazide 12.5 MG TAKE 1 CAPSU LE BY MOUTH EVERY MORNING; Duration: 90 Not-Taking Immunizations Vaccine Route Administration Date Status Comme nts COVID Moderna Unknown 05/24/2020 Administered COVID Moderna Unknown 06/21/2020 Administered COVID Moderna Unknown 01/20/2021 Administered COVID-19 Moderna Unknown 12/03/2021 Administered Flu High-Dose Unknown 12/03/2021 Administered Fluzone High Dose [id number] IM Intramuscular 12/14/2024 Admini stered Influenza, high dose seasonal Unknown 11/22/2018 Administered Influenza, high dose seasonal Unknown 12/03/2020 Administered Pneumococcal polysaccharide PPV23 Unknown 05/06/2016 Administered RSV IM Intramuscular 12/14/2024 Administered Shingrix Unknown 01/08/2019 Administered Tdap IM [...] Status Risk Notes Problem Morbid obesity (disorder) (340876541) Morbid (severe) obesity due to excess calories (E66.01) Active confirmed Problem Mixed hyperlipidemia (554305624) Mixed hyperlipidemia (E78.2) Active confirmed Problem Chronic kidney disease due to hypertension (649899743428629) Hypertensive chronic kidney disease with stage 1 through stage 4 chronic kidney disease, or unspecified chronic kidney disease (I12.9) Active confirmed Problem Chronic gouty arthritis (50642095) Chronic gout, unspecified, 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) Active confirmed Problem Chronic kidney disease stage 3 (disorder) (684106409) Chronic kidney disease, stage 3 (moderate) (N18.3) Active confirmed Problem Congenital renal artery stenosis (614704147) 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) Active confirmed Problem Impaired fasting glucose (129060159) Impaired fasting glucose (R73.01) Active confirmed Problem Proteinuria (08370100) Proteinuria, unspecified (R80.9) Active confirmed Problem Adult health examination (064349484) Encounter for general adult medical examination without abnormal findings (Z00.00) Active confirmed Problem Essential hypertension (53869628) Essential (primary) hypertension (I10) Active confirmed Problem Benign prostatic hypertrophy without outflow obstruction (810241153) Benign prostatic hyperplasia without lower urinary tract symptoms (N40.0) Active confirmed Problem Chronic kidney disease stage 3A (disorder) (660077677) Chronic kidney disease, stage 3a (N18.31) Active confirmed Problem Chronic kidney disease stage 3B (disorder) (786763311) Chronic kidney disease, stage 3b (N18.32) Active confirmed Problem Neck pain (47127350) Neck pain (M54.2) Active confirmed Vital Signs Heart Rate 68 /min 12/14/2024 Temperature 97.0 degrees Fahrenheit 12/14/2024 Blood pressure diastolic 70 mm Hg 12/14/2024 Oximetry 96 % 12/14/2024 Height 69.37 in 12/14/2024 Blood pressure systolic 130 mm Hg 12/14/2024 Weight 251.9 lbs 12/14/2024 BMI 36.8 kg/m2 12/14/2024 Encounters Encounter Location Date Provider Diagnosis [address] [address] 06/09/2024 [facility] Essential (primary) hypertension I10 ; Mixed hyperlipidemia E78.2 ; Chronic kidney disease, stage 3 (moderate) N18.3 ; Chronic gout, unspecified, without tophus (tophi) M1A.9XX0 and Impaired fasting glucose R73.[address] [address] 12/14/2024 [facility] Essential (primary) hypertension I10 ; Annual wellness visit Z00.00 ; Mixed hyperlipidemia E78.2 ; Chronic kidney disease, stage 3b N18.32 ; Chronic gout, unspecified, without tophus (tophi) M1A.9XX0 ; Impaired fasting glucose R73.01 ; Hypertensive chronic kidney disease with stage 1 through stage 4 chronic kidney disease, or unspecified chronic kidney disease I12.9 ; Encounter for general adult medical examination without abnormal findings Z00.00 and Encounter for immunization Z23 [address] [address] 08/19/2024 [facility] Assessments Encounter Date Diagnosis (ICD Code) Assessment Notes Treatment Notes Treatment Clinical Notes Section Notes 06/09/2024 Mixed hyperlipidemia (ICD-10 - E78.2) Mr. [...] a month. Eye screening. He sees his grinder tender regularly. Dental screening. He sees dentist regularly. [...] a month. Eye screening. He sees his grinder tender regularly. Dental screening. He sees dentist regularly. Immunizations. He is up-to-date on his COVID, TDAP, influenza, shingles and pneumonia vaccinations. Blood work reviewed with patient and questions answered. General health concerns discussed with patient. 12/14/2024 Essential (primary) hypertension (ICD-10 - I10) Mr. [...] a month. Eye screening. He sees his grinder tender regularly. Dental screening. He sees dentist regularly. Immunizations. He is up-to-date on his COVID, TDAP, influenza, shingles and pneumonia vaccinations. Blood work reviewed with patient and questions answered. General health concerns discussed with patient. 12/14/2024 Annual wellness visit (ICD-10 - Z00.00) Mr. Mercado is an [...] a month. Eye screening. He sees his grinder tender regularly. Dental screening. He sees dentist regularly. Immunizations. He is up-to-date on his COVID, TDAP, influenza, shingles and pneumonia vaccinations. Blood work reviewed with patient and questions answered. General health concerns discussed with patient. 12/14/2024 Mixed hyperlipidemia (ICD-10 - E78.2) Mr. Mercado [...] a month. Eye screening. He sees his grinder tender regularly. Dental screening. He sees dentist regularly. [...] a month. Eye screening. He sees his grinder tender regularly. Dental screening. He sees dentist regularly. Immunizations. He is up-to-date on his COVID, TDAP, influenza, shingles and pneumonia vaccinations. Blood work reviewed with patient and questions answered. General health concerns discussed with patient. 06/09/2024 Chronic gout, unspecified, without tophus (tophi) [...] a month. Eye screening. He sees his grinder tender regularly. Dental screening. He sees dentist regularly. Immunizations. He is up-to-date on his COVID, TDAP, influenza, shingles and pneumonia vaccinations. Blood work reviewed with patient and questions answered. General health concerns discussed with patient. 12/14/2024 Chronic kidney disease, stage 3b (ICD-10 - N18.32) Mr. Mercado is an 83-year-old gentleman with [...] a month. Eye screening. He sees his grinder tender regularly. Dental screening. He sees dentist regularly. Immunizations. He is up-to-date on his COVID, TDAP, influenza, shingles and pneumonia vaccinations. Blood work reviewed with patient and questions answered. General health concerns discussed with patient. 12/14/2024 Chronic gout, unspecified, without tophus (tophi) (ICD-10 [...] a month. Eye screening. He sees his grinder tender regularly. Dental screening. He sees dentist regularly. Immunizations. He is up-to-date on his COVID, TDAP, influenza, shingles and pneumonia vaccinations. Blood work reviewed with patient and questions answered. General health concerns discussed with patient. 12/14/2024 Impaired fasting glucose (ICD-10 - R73.01) Mr. [...] a month. Eye screening. He sees his grinder tender regularly. Dental screening. He sees dentist regularly. Immunizations. He is up-to-date on his COVID, TDAP, influenza, shingles and pneumonia vaccinations. Blood work reviewed with patient and questions answered. General health concerns discussed with patient. 06/09/2024 Impaired fasting glucose (ICD-10 - R73.01) [...] a month. Eye screening. He sees his grinder tender regularly. Dental screening. He sees dentist regularly. Immunizations. He is up-to-date on his COVID, TDAP, influenza, shingles and pneumonia vaccinations. Blood work reviewed with patient and questions answered. General health concerns discussed with patient. 12/14/2024 Hypertensive chronic kidney disease with stage 1 through stage 4 chronic kidney disease, or unspecified chronic kidney disease (ICD-10 - I12.9) Mr. Mercado is an 83-year-old gentleman with [...] a month. Eye screening. He sees his grinder tender regularly. Dental screening. He sees dentist regularly. Immunizations. He is up-to-date on his COVID, TDAP, influenza, shingles and pneumonia vaccinations. Blood work reviewed with patient and questions answered. General health concerns discussed with patient. 12/14/2024 Encounter for general adult medical examination without [...] a month. Eye screening. He sees his grinder tender regularly. Dental screening. He sees dentist regularly. Immunizations. He is up-to-date on his COVID, TDAP, influenza, shingles and pneumonia vaccinations. Blood work reviewed with patient and questions answered. General health concerns discussed with patient. 12/14/2024 Encounter for immunization (ICD-10 - Z23) Mr. Mercado is an 83-year-old gentleman with [...] a month. Eye screening. He sees his grinder tender regularly. Dental screening. He sees dentist regularly. [...] URIC ACID 06/17/2018 Hemoglobin A1C 06/11/2018 Hemoglobin [id number] 05/21/2023 Future Test Test Name Order Date Uric Acid-[id number] 06/09/2024 Hemoglobin [id number] 06/09/2024 Albumin/Creatinine Ratio,Urine-[id number] Lipid Panel-[id number] 06/09/2024 Comp. Metabolic Panel [id number] 2024 Next Appt Details Provider Name:KEVIN LIZAMA , 06/14/2025 09:00:00 AM, [address], [place], [address], Insurance Providers Payer Name Payer Address Payer Phone Subscriber Number Group Number Insured Name Patient Relationship to Insured Coverage Start Date Coverage End Date [employer] Preferred [address] [place] [address] [phone] [id number] Neil Mercado Self - patient is the insured 2 Medical (General) History Medical History History ICD Code hypertension, benign hyperlipidemia BPH Gout Surgical History Surgery Date(Month/Year) cataract removal 2015 Disc Fragments, back 2000 bladder cancer 1992
--- OUTSIDE RECORDS SUMMARY | 2025-03-23 13:23 | XMS_ITS | Clinical Summary ---
Author Organization [address] Address [address] [place] [address] Phone Care Team Providers Care Hand Button Splitter Name Role Phone Katie Jade MD Primary Care Provider [phone] Encounters Date Type Department Care Team Description 02/24/2025 8:40 AM EST Lab Draw Station - [address] [address] Localized edema (Primary Dx); Chronic kidney disease (CKD) stage G3a/A1, moderately decreased glomerular filtration rate (GFR) between 45-59 mL/min/1.73 square meter and albuminuria creatinine ratio les* (CMS/HCC V24, CMS/HCC V28); Essential hypertension, malignant from Last 3 Months Social History Tobacco Use Types Packs/Day Years Used Date Smoking Tobacco: Never Assessed Sex and Gender Information Value Date Recorded Sex Assigned at Not on file Legal Sex Male 4:48 AM EST Gender Identity Not on file Sexual Orientation Not on file Plan of Treatment Health Maintenance Due Date Last Done Comments Pneumococcal Vaccine: 50+ Years (2 of 2 - PCV) 05/06/2017 05/06/2016 Zoster Vaccines (2 of 2) 2019 01/08/2019 Falls Risk Assessment 02/24/2022 Medicare Annual Wellness Visit 02/24/2022 Social Influencers of Health Screening 02/24/2022 Depression Screening 03/24/2024 COVID-19 Vaccine ( season) 2024 12/02/2023, 12/09/2022, 12/03/2021, Additional history exists Hypertension/CHF/CAD Annual BMP Blood Test 12/07/2025 12/07/2024, 11/16/2024, 09/01/2024, Additional history exists Cholesterol Screening (Lipid Panel) 12/07/2029 12/07/2024 DTaP,Tdap,and Td Vaccines (2 - Td or Tdap) 11/20/2032 11/20/2022 RSV Immunization Adult Patients Completed 11/26/2022 Influenza Vaccine Completed 12/14/2024, , 11/26/2022, Additional history exists HIB Vaccines Aged Out No longer eligi ble based on patient's age to complete this topic HPV Vaccines Aged Out No longer eligi ble based on patient's age to complete this topic Hepatitis A Vaccines Aged Out No long er eligible based on patient's age to complete this topic Hepatitis B Vaccines Aged Out No long er eligible based on patient's age to complete this topic IPV Vaccines Aged Out No longer eligi ble based on patient's age to complete this topic MMR Vaccines Aged Out No longer eligi ble based on patient's age to complete this topic Meningococcal ACWY Vaccine Aged Out N o longer eligible based on patient's age to complete this topic Meningococcal B Vaccine Aged Out No l onger eligible based on patient's age to complete this topic RSV Immunization Patients Under 20 months Aged Out No longer eligible based on patient's age to complete this topic Varicella Vaccines Aged Out No longer eligible based on patient's age to complete this topic Procedures Procedure Name Priority Date/Time Associated Diagnosis Comments ELECTROLYTE PANEL Routine 02/24/2025 8:3 8 AM EST Localized edema Chronic kidney disease (CKD) stage G3a/A1, moderately decreased glomerular filtration rate (GFR) between 45-59 mL/min/1.73 square meter and albuminuria creatinine ratio les* (CMS/HCC V24, CMS/HCC V28) Essential hypertension, malignant BUN Routine 02/24/2025 8:38 AM EST Localized edema Chronic kidney disease (CKD) stage G3a/A1, moderately decreased glomerular filtration rate (GFR) between 45-59 mL/min/1.73 square meter and albuminuria creatinine ratio les* (CMS/HCC V24, CMS/HCC V28) Essential hypertension, malignant COMPREHENSIVE METABOLIC PANEL Routine 12/07/2024 8:39 AM EDT Chronic gouty arthritis Impaired fasting glucose Essential hypertension, malignant LIPID PANEL WITH REFLEX TO DIRECT LDL Routine 12/07/2024 8:39 AM EDT Chronic gouty arthritis Impaired fasting glucose Essential hypertension, malignant from Last 3 Months or Most Recently Relevant to Health Maintenance Results * (ABNORMAL) BUN (02/24/2025 8:38 AM EST) BUN 55(H) 5 - 25 mg/dL 02/24/2025 12:26 PM EST [facility] Blood Venous blood specimen / Unknown Venipuncture / Unknown 02/24/2025 8:38 AM EST 02/24/2025 8:38 AM EST us Florian Fonseca MD LAB BLOOD ORDERABLES Final Resul t Performing Organization Address [facility]/ZIP Co de Phone Number [facility] [address] [place] [address], [place] [phone] * Electrolyte panel (02/24/2025 8:38 AM EST) Sodium 139 133 - 145 mmol/L 02/24/2025 12:24 PM EST [facility] Potassium 4.0 3.5 - 5.5 mmol/L 02/24/2025 12:24 PM [facility] Chloride 100 96 - 110 mmol/L 02/24/2025 12:24 PM EST [facility] CO2 31 21 - 32 mmol/L 02/24/2025 12:24 PM EST [facility] Anion Gap 8 3 - 11 02/24/2025 12:24 PM EST [facility] Blood Venous blood specimen / Unknown Venipuncture / Unknown 02/24/2025 8:38 AM EST 02/24/2025 8:38 AM EST us Florian Fonseca MD LAB BLOOD ORDERABLES Final Resul t Performing Organization Address City/[facility]/ZIP Co de Phone Number [facility] [address] [place] [address], [place] [phone] * Lipid panel with reflex to direct LDL (12/07/2024 8:39 AM EDT) Cholesterol 122 0 - 200 mg/dL LAB CHEMISTRY METHOD 12/07/2024 12:19 PM EDT [facility] Triglycerides 128 0 - 150 mg/dL LAB CHEMISTRY METHOD 12/07/2024 12:19 PM EDT [facility] HDL 45 >=40 mg/dL LAB CHEMISTRY METHOD 12/07/2024 12:19 PM EDT [facility] LDL Calculated 51 0 - 100 mg/dL LAB CHEMISTRY METHOD 12/07/2024 12:19 PM EDT [facility] Comment:Estimated LDL Calcul ated using equation: Total cholesterol - HDL cholesterol - (Triglycerides/5) VLDL Cholesterol Edmar 25.6 mg/dL LAB CHEMISTRY METHOD 12/07/2024 12:19 PM EDT [facility] Non HDL Chol. (LDL+VLDL) 77 <145 mg/dL LAB CHEMISTRY METHOD 12/07/2024 12:19 PM EDT [facility] Chol/HDL Ratio 2.7 0.0 - 4.4 LAB CHEMISTRY METHOD 12/07/2024 12:19 PM [facility] Blood Venous blood specimen / Unknown Venipuncture / Unknown 12/07/2024 8:39 AM EDT 12/07/2024 8:39 AM EDT us Katie Jade MD LAB BLOOD ORDERABLES Final Res ult [facility] [address] [place] [address], [place] [phone] * (ABNORMAL) Comprehensive metabolic panel (12/07/2024 8:39 AM EDT) Sodium 138 133 - 145 mmol/L LAB CHEMISTRY METHOD 12/07/2024 12:19 PM [facility] Potassium 4.2 3.5 - 5.5 mmol/L LAB CHEMISTRY METHOD 12/07/2024 12:19 PM [facility] Chloride 102 96 - 110 mmol/L LAB CHEMISTRY METHOD 12/07/2024 12:19 PM [facility] CO2 27 21 - 32 mmol/L LAB CHEMISTRY METHOD 12/07/2024 12:19 PM [facility] Anion Gap 9 3 - 11 LAB CHEMISTRY METHOD 12/07/2024 12:19 PM [facility] Glucose 109(H) 70 - 100 mg/dL LAB CHEMISTRY METHOD 12/07/2024 12:19 PM [facility] BUN 42(H) 5 - 25 mg/dL LAB CHEMISTRY METHOD 12/07/2024 12:19 PM [facility] Creatinine 2.06(H) 0.70 - 1.30 mg/dL LAB CHEMISTRY METHOD 12/07/2024 12:19 PM [facility] eGFR 31(L) >=60 mL/min/1. 73m2 LAB CHEMISTRY METHOD 12/07/2024 12:19 PM [facility] Comment:Calculation based on the Chronic Kidney Disease Epidemiology Collaboration (CKD-EPI) equation refit without adjustment for race. BUN/Creatinine Ratio 20.4 LAB CHEMISTRY METHOD 12/07/2024 12:19 PM [facility] Calcium 8.9 8.5 - 10.5 mg/dL LAB CHEMISTRY METHOD 12/07/2024 12:19 PM [facility] AST (SGOT) 21 10 - 42 unit/L LAB CHEMISTRY METHOD 12/07/2024 12:19 PM [facility] ALT (SGPT) 16 10 - 60 unit/L LAB CHEMISTRY METHOD 12/07/2024 12:19 PM [facility] Alkaline Phosphatase 65 42 - 121 unit/L LAB CHEMISTRY METHOD 12/07/2024 12:19 PM EDT [facility] Total Protein 7.2 6.0 - 8.0 g/dL LAB CHEMISTRY METHOD 12/07/2024 12:19 PM EDT [facility] Albumin 3.4 3.2 - 5.0 g/dL LAB CHEMISTRY METHOD 12/07/2024 12:19 PM EDT [facility] Total Bilirubin 0.5 0.0 - 1.4 mg/dL LAB CHEMISTRY METHOD 12/07/2024 12:19 PM EDT [facility] Blood Venous blood specimen / Unknown Venipuncture / Unknown 12/07/2024 8:39 AM EDT 12/07/2024 8:39 AM EDT Katie Jade MD LAB BLOOD ORDERABLES Final Res ult [facility] [address] [place] [address], from Last 3 Months or Most Recently Relevant to Health Maintenance Insurance [employer] Care Teams Hand Button Splitter Relationship Specialty Start Date End Date Katie Jade MD [address] [place] [address] PCP - General Internal Medicine 03/25/24
== END 2025-03-23 12:19 | disposition home or self-care (01) ==
LOC: HO.HKA 11:41
PROVIDERS: PCP Hospitalist; Visit Provider Internal Medicine Nephrology
DX: N18.31 Chronic kidney disease, stage 3a (principal); I10 Essential (primary) hypertension; L03.115 Cellulitis of right lower limb
CPT/HCPCS: 99214